=== PATIENT | female | born 1990 | race African-American/Black ===

== ENCOUNTER 2017-01-03 20:43 | Observation (INO) ==
[2017-01-03] MEDS ORDERED: SODIUM CHLORIDE 0.9% 500 ML IV STA (21:56)
--- NOTE | 2017-01-03 22:22 | Emergency Department Note ---
Garrett Be Gwan, am scribing for, and in the presence of, Roger Dunham MD 22 :05. Charla Be Charles R, MD, personally performed the services described in this documentation, ascribed by Mason Tucker in my presence, and it is both accurate and complete . Arrival - Arrival Chief Complaint: Urogenital - Female Stated Complaint: and cramping/4 months ED Nursing Triage Note: AMB TO ER WITH C/O LOWER ABDOMINAL CRAMPS AND SPOTTING THAT BEGAN 1 HOUR PRIOR TO ARRIVAL. PATIENT REPORTS SHE HAS NOT HAD ANY CARE. AO. LMP REPORTED WAS THE MIDDLE OF AUGUST SOMETIME- UNSURE OF ACTUAL DATE. Mode of Arrival: Ambulatory Limitations: No Limitations Source: Patient, Old Records Reviewed, RN Notes Reviewed Time Seen by Provider: 01/03/17 21:53 - History of Present Illness HPI Narrative: Patient is a 26 y/o female (, P:3, A:0) who presents to the ED with a c/o lower abd cramping, [place] and intermittent dark vaginal spotting with an onset yesterday. She continued to note that her sxs began to worsen prompting her visit to the ED tonight for further evaluation. Patient stated that she has her first OBGYN appointment tomorrow (01/04/2017) with Dr. Costello. Patient denies knowing exactly how far along in her she is, being under any medical care since confirmation of or having in PMHx of medical problems. No other problems/complaints reported in ED. Onset (ago): day(s) Consistency: constant, intermittent Severity: moderate Date of Last Menstrual Period: 08/2016 Allergies/Adverse Reactions: Allergies Allergy/AdvReac Type Severity Reaction Status Date / Time No Known Allergies Allergy Verified 01/03/17 21:05 Home Medications: Home Medications Medication Instructions Recorded Confirmed Type No Known Home Medications [No 01/03/17 01/03/17 History Known Home Medications] Review of System - Review of System 12 point system: reviewed and no additional remarkable complaints except as stated - Review of System Constitutional: Absent: chills, fever Eyes: Absent: discharge, pain Gastrointestinal: Present: as per HPI, abdominal pain (lower abd pain). Absent : nausea Genitourinary female: Present: as per HPI, abnormal menses (dark vaginal spotting ). Absent: dysuria Neurological: Present: as per HPI, headache Medical,Surgical,& Family Hx - Medical History Reproductive: No history of: Ectopic , Complication - Surgical History Reproductive Surgeries: Patient denies;: Section - Family History Family History: Reports;: Family Diabetes (father), Family Hypertension Denies;: Family Anesthesia Reaction, Family Cancer, Family Heart Disease, Family Psychiatric Problems, Family Stroke - Social History Smoking Status: Never smoker Frequency of Alcohol Use: None Type of Drug Use: None Exam Vital Signs: Vital Signs Temperature 97.3 F L 01/03/17 20:56 Pulse Rate 85 01/03/17 20:56 Respiratory Rate 18 01/03/17 20:56 Blood Pressure 132/81 01/03/17 20:56 O2 Sat by Pulse Oximetry 100 01/03/17 20:56 - General General appearance: alert, in no apparent distress - Head Head exam: Present: atraumatic, normocephalic - Eye Eye exam: Present: normal appearance, PERRL, EOMI - ENT ENT exam: Present: normal oropharynx, mucous membranes moist, TM's normal bilaterally, normal external ear exam - Neck Neck exam: Present: full ROM, trachea midline. Absent: tenderness - Chest Chest inspection: Present: symmetric chest wall rise. Absent: tenderness - Respiratory Respiratory exam: Present: normal lung sounds bilaterally. Absent: respiratory distress - Cardiovascular Cardiovascular exam: Present: regular rate, normal rhythm, normal heart sounds. Absent: murmur - Abdominal Exam Abdominal exam: Present: other (Patient has lower pelvic pain. ) - Extremities Exam Extremities exam: Present: full ROM. Absent: tenderness - Back Exam Back exam: Present: full ROM. Absent: tenderness - Neurological Exam Neurological exam: Present: alert, oriented X3, CN II-XII intact. Absent: motor sensory deficit - Psychiatric Psychiatric exam: Present: normal affect, normal mood - Skin Skin exam: Present: warm, dry, intact, normal color Course - Consultations Consultation #1: Dr. Costello will admit patient Time: 23:31 Results - Labs CBC & BMP: 01/03/17 22:34 Lab Results: I have reviewed the patients labs Labs: Laboratory Tests 01/03/17 01/03/17 22:34 22:34 WBC 13.6 H RBC 3.95 Hgb 12.1 Hct 35.9 Plt Count 264 MPV 8.9 L Neut % (Auto) 79.1 H Lymph % (Auto) 12.3 L Neut # (Auto) 10.7 H Charles # (Auto) 0.9 H Urine pH 6.0 Ur Specific [place] 1.009 Urine Blood Moderate Urine Urobilinogen < 2.0 H Urine Leukocytes Trace Urine RBC 1 Urine WBC 2 Ur Squamous Epith Cells Occasional Urine Bacteria Occasional Urine Mucus Occasional Laboratory Tests 01/03/17 22:34 INR 1.0 PT Patient/Control Mix 10.1 Disposition Clinical Impression: 14 week demise, Pelvic pain, Vaginal bleeding Case discussed with: patient, patient's family Disposition: Still a Patient Condition: Stable Time of Disposition: 23:31 Contact your physician if you experience:: fever over 101, Difficulty voiding, Redness or swelling, Nausea/Vomiting, Shortness of breath, Bleeding, pain uncontrolled by pain medications, Other Return to the Emergency Department if:: fever over 101, Difficulty voiding, Redness or swelling, Nausea/Vomiting, Shortness of breath, Bleeding, pain uncontrolled by pain medications, Other
[2017-01-03 23:01] LABS: Basophils # 0.1 10*3/uL (0.0-0.2); Basophils % 0.4 % (0.0-0.8); Eosinophils # 0.1 10*3/uL (0.0-0.87); Hematocrit 35.9 VOL% (35.7-47.0); Hemoglobin 12.1 GM/DL (12.0-16.0); Immature Granulocytes % 0.4 %; Immature Granulocytes Absolute 0.05 #; Lymphocytes # 1.7 10*3/uL (1.4-4.0); Lymphocytes % 12.3 % (21.3-54.2); Mean Corpuscular HGB Conc 33.7 GM/DL (32-36); Mean Corpuscular Hemoglobin 31 PG (27-34); Mean Corpuscular Volume 90.9 FL (87-102); Mean Platelet Volume 8.9 FL (9.6-12.0); Monocytes # 0.9 10*3/uL (0.11-0.8); Monocytes % 6.8 % (1.7-12.7); Neutrophils # 10.7 10*3/uL (1.4-7.4); Neutrophils % 79.1 % (38.7-73.9); Platelet Count 264 T/CUMM (130-400); Red Blood Count 3.95 MC/CUMM (3.8-5.5); Red Cell Distribution Width 12.3 % (9.3-17.3); White Blood Count 13.6 T/CUMM (4-12)
[2017-01-03 23:15] LABS: Apearance,Urine CLEAR (Clear); Bacteria,Urine Occasional /HPF (Few); Bilirubin,Urine Negative (Negative); Blood, Urine Moderate mg/dL (Negative); Glucose,Urine (UA) Negative (Negative); Ketones,Urine Negative (Negative); Mucus,Urine Occasional /LPF (Occasional); Nitrite,Urine Negative (Negative); Protein,Urine Negative; RBC,Urine 1 /HPF (0-4); Squamous Epithelial Cell,Urine Occasional /HPF (0-10); Urine Color Yellow (Yellow); Urine Specific Gravity 1.009 (1.001-1.035); Urine Urobilinogen < 2.0 EU/DL (0.2-1.0); WBC,Urine 2 /HPF (0-6)
[2017-01-03 23:16] LABS: PT Patient Result 10.1 SECS
[2017-01-03 23:27] LABS: Albumin 3.3 G/DL (3.4-5.0); Bilirubin,Total 0.4 MG/DL (0.2-1.0); Calcium 8.8 MG/DL (8.5-10.1); Osmolality,Calculated 270.8 MOS/KG (273-304); Potassium 3.6 MMOL/L (3.5-5.1); Total Protein 8.1 G/DL (6.4-8.3)
[2017-01-04] MEDS ORDERED: MORPHINE 2 MG/1 ML SYRINGE IV ONE (00:58)
[2017-01-04] MEDS ORDERED: ONDANSETRON 4 MG/2 ML VIAL ONE (00:58)
[2017-01-04] MEDS ORDERED: ONDANSETRON 4 MG/2 ML VIAL IV ONE (00:58)
[2017-01-04] MEDS ORDERED: MORPHINE 2 MG/1 ML SYRINGE ONE (00:58)
[2017-01-04] MEDS ORDERED: MAGNESIUM HYDROXIDE SUSP 30 ML UDCUP PO PRN (01:38)
[2017-01-04] MEDS ORDERED: ACETAMINOPHEN 325 MG TABLET PO PRN (01:38)
[2017-01-04] MEDS ORDERED: IBUPROFEN 800 MG TABLET PO PRN (01:38)
[2017-01-04] MEDS ORDERED: BISACODYL 10 MG SUPP RECTAL PRN (01:38)
[2017-01-04] MEDS ORDERED: ONDANSETRON 4 MG/2 ML VIAL IV PRN (01:38)
[2017-01-04] MEDS ORDERED: MORPHINE 2 MG/1 ML SYRINGE IV PRN (01:38)
[2017-01-04] MEDS ORDERED: ACETAMINOPHEN 325 MG TABLET ONE (01:47)
[2017-01-04] MEDS ORDERED: OXYTOCIN/LR 20 UNIT/1,000 ML BAG IV ONE ×2 (02:05→11:01)
[2017-01-04 02:52] LABS: Basophils # 0.1 10*3/uL (0.0-0.2); Basophils % 0.4 % (0.0-0.8); Eosinophils # 0.1 10*3/uL (0.0-0.87); Eosinophils % 0.4 % (0.00-10.9); Hematocrit 31.9 VOL% (35.7-47.0); Hemoglobin 11.1 GM/DL (12.0-16.0); Immature Granulocytes % 0.4 %; Immature Granulocytes Absolute 0.06 #; Lymphocytes # 1.3 10*3/uL (1.4-4.0); Lymphocytes % 9.5 % (21.3-54.2); Mean Corpuscular HGB Conc 34.8 GM/DL (32-36); Mean Corpuscular Hemoglobin 31 PG (27-34); Mean Corpuscular Volume 90.4 FL (87-102); Mean Platelet Volume 9.1 FL (9.6-12.0); Monocytes # 0.9 10*3/uL (0.11-0.8); Monocytes % 6.7 % (1.7-12.7); Neutrophils # 11.5 10*3/uL (1.4-7.4); Neutrophils % 82.6 % (38.7-73.9); Platelet Count 254 T/CUMM (130-400); Red Blood Count 3.53 MC/CUMM (3.8-5.5); Red Cell Distribution Width 12.4 % (9.3-17.3)
[2017-01-04] MEDS: SODIUM CHLORIDE 0.9% 1,000 ML IV SCH ×2 (05:17→12:56)
[2017-01-04] MEDS ORDERED: MEPERIDINE 25 MG/1 ML VIAL IV PRN (05:18)
--- NOTE | 2017-01-04 06:41 | Ultrasound Report ---
Exam: US OB <= 14 weeks fetus Date: 01/03/2017 9:57 PM Comparison: None Indication: Vaginal bleeding Findings: Transabdominal imaging was obtained. Uterus: 16.5 x 7.8 x 10.3 cm Gestational sac: Single gestational sac pole: calvarium appears to be collapsing. Head circumference 7.73 cm corresponding to a 13 week 2 day gestation BPD 1.67 cm corresponding to a 12 week 3 day gestation Abdominal circumference 6.98 cm corresponding to a 13 week 4 day gestation Femur length 1.31 cm corresponding to a 13 week 6 day gestation. No heart tones are demonstrated. Yolk sac: Not visualized Placenta cannot be identified definitely at this estimated gestational age. Amniotic fluid is appropriate for this estimated gestational age Right ovary: 3.5 x 2.1 x 3.5 cm Left ovary: 2.4 x 2.3 x 2.1 cm Free fluid: None Bladder: Not well seen Cervical length 3.6 cm No amniotic fluid present. Impression: 1. Intrauterine demise with 13 week 2 day gestation. Critical test report was called by [facility] radiology at the time of dictation To Dr. Dunham approximately 11:30 PM Ultrasound images were stored and captured PROCEDURE INTERPRETED AT [facility] [place] DEPARTMENT OF RADIOLOGY Final Report Signed by: Dr. Manpreet Vasquez
[2017-01-04] MEDS ORDERED: DOCUSATE SODIUM 100 MG CAPSULE PO SCH (09:00)
--- NOTE | 2017-01-04 09:23 | OB/GYN History & Physical ---
History of Present Illness Chief complaint: demise History of present illness: Ms. Sanchez is a 26 year old female 13+ weeks gestation with demise. Presents emergency room with vaginal bleeding and no cardiac activity. We will plan on performing a dilatation curettage. Risks benefits thoroughly discussed with the patient is in full agreement. Home Medications Medication Instructions Recorded Confirmed Type No Known Home Medications [No 01/03/17 01/03/17 History Known Home Medications] Allergies Allergy/AdvReac Type Severity Reaction Status Date / Time No Known Allergies Allergy Verified 01/03/17 21:05 Medical,Surgical,& Family Hx - Medical History Cardio: History of: Hypertension (Gestional HTN-- in 2015) Neurology: History of: Migraine (No medications for) No history of: Seizures Endocrine: No history of: Diabetes Mellitus (IDDM), Diabetes Mellitus (NIDDM), Thyroid Disorder Rheumatology: No history of;: Systemic Lupus Erythematosus Genitourinary: No history of: Kidney Stones, Recurring Urinary Tract Infections Hematology: No history of: Anemia, Blood Transfusion Reaction (Never had blood transfusion), Clotting Problems, Sickle Cell Disease, Blood Disorders Reproductive: No history of: Abnormal Pap Smear, Endometriosis, Ectopic , Ovarian Cysts, Complication, Sexually Transmitted Disorders Other: No history of: HIV, MRSA - Surgical History Reproductive Surgeries: Patient denies;: Breast Surgery, Section, Dilation and Curettage - Family History Family History: Reports;: Family Diabetes (father), Family Hypertension Denies;: Family Anesthesia Reaction, Family Cancer, Family Heart Disease, Family Psychiatric Problems, Family Stroke - Social History Smoking Status: Never smoker Frequency of Alcohol Use: None 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 Vitals: Vital Signs Temp Pulse Pulse Resp BP BP Pulse Ox 01/04/17 07:40 97.3 F L 71 18 108/72 01/04/17 06:00 18 01/04/17 04:00 97.6 F 66 16 107/67 01/04/17 01:30 97.4 F L 80 20 119/76 01/04/17 01:00 91 H 18 107/60 96 01/04/17 00:45 77 20 122/79 100 01/03/17 23:30 61 18 127/76 100 01/03/17 22:30 72 20 117/70 100 01/03/17 22:00 84 18 120/63 97 01/03/17 21:15 76 20 117/85 100 01/03/17 20:56 97.3 F L 85 18 132/81 100 Pulse Ox 01/04/17 07:40 98 01/04/17 06:00 01/04/17 04:00 99 01/04/17 01:30 100 01/04/17 01:00 01/04/17 00:45 01/03/17 23:30 01/03/17 22:30 01/03/17 22:00 01/03/17 21:15 01/03/17 20:56 General appearance: no acute distress - Antepartum / Post Antepartum Exam Cervix - Dilatation: Vaginal bleeding noted - Head Head exam: Present: normal inspection - Eye Eye exam: Present: EOMI Pupils: Present: TASH - ENT ENT exam: Present: normal exam - Respiratory Respiratory exam: Present: clear to auscultation bilaterally - Breast Breasts: as per HPI Menstruation: as per HPI - Cardiovascular Cardiovascular exam: Present: regular rate and rhythm - GI/Abdominal GI/Abdominal exam: Present: normal bowel sounds - Extremities Exam Extremities exam: Present: normal inspection - Back Exam Back exam: Present: normal inspection - Neurological Exam Neurological exam: Present: alert, oriented X3 - Psychiatric Psychiatric exam: Present: normal affect - Skin Skin exam: Present: normal color Assessment and Plan (1) demise Status: Acute Assessment and plan: Dilatation and curettage risks benefits are discussed she is in full agreement Current Visit: Yes Results - Labs CBC & BMP: 01/04/17 02:37 01/03/17 22:34
[2017-01-04] MEDS ORDERED: LACTATED RINGERS 1,000 ML IV SCH (10:00)
--- NOTE | 2017-01-04 11:00 | Operative Note ---
Date of procedure: 01/04/17 Procedure: Preoperative diagnosis: [] 13 weeks Postoperative diagnosis: Same, incomplete AB Anesthesia: General. endotracheal anesthesia Estimated blood loss: [] Less than 100 cc Surgeon: Dr. Costello Procedure: Dilatation and curettage The patient was taken to operating suite and placed in supine position and preparation of the perineum. A weighted speculum was placed in the posterior portion vagina and a single-tooth tenaculum was used to grasp the anterior lip of the cervix. The cervix was dilated to [9] [place] A suction curette was then placed inside. Gentle scraping was obtained in all 4 quadrants. [A moderate amount of tissue was obtained] at this particular time. Hemostasis was maintained at this particular time. Patient was extubated in the operating room and taken to recovery room in stable condition. Surgeon / Physician: Samuel Costello Results - Labs CBC & BMP: 01/04/17 02:37 01/03/17 22:34 Discharge Plan - Discharge Data Condition at Discharge: Stable Activity: increase activity as tolerated Hygiene: may shower Weight Bearing at Discharge: weight bear as tolerated Driving: no restrictions Contact your physician if you experience:: fever over 101, Bleeding - Discharge Medications New HYDROcodone/ACETAMIN 5-325 [[place] 5-325] 1 tablet PO Q6H #20 tablet Ibuprofen Tab [Motrin Tab] 800 mg PO Q8H PRN #30 tablet PRN Reason: Pain Moderate (4-7) - Follow Up or Referral - Forms/Instructions Instructions: Spontaneous Miscarriage (DC), Dilation and Curettage (DC)
--- NOTE | 2017-01-04 11:17 | Anesthesia Post-Op ---
Anesthesia Post OP - Post Ansesthetic Evaluation Patient seen in post op: Yes Resp: within normal limits CV: within normal limits Mental: within normal limits Temp: within normal limits Week-Qs-[id number]: within normal limits Nausea and Vomiting: within normal limits Pain: within normal limits
[2017-01-04 13:56] VITALS: BP 111/71
--- NOTE | 2017-01-05 18:16 | Pathology Report from [facility] ---
[employer] ACCESSION # : [id number] PATIENT NAME : Bill Schwartz ORDERING DR : Roger Dunham MD CLINICAL HX: 26 year old BF [id number] spontaneous miscarriage POST-OP DX: Same SPECIMEN INFO: #1 demise #2 Placenta (approx. 13-14 wks) GROSS DESCRIPTION: Received in two parts labeled:#1 BILL GRAY is a 27 gm macerated male fetus with a crown to rump measurement of 7.5 cm and a crown to heel measurement of 11.0 cm. No anomalies are grossly appreciated. Submitted for gross exam only.#2 BILL GRAY is a 104 gm placenta measuring 9.0 x 7.5 x 2.0 cm. The membranes are [place] and somewhat translucent. The umbilical cord measures 5.5 cm and is eccentrically inserted. The maternal surface is intact with scattered possible infarctions noted. Sections submitted 2A- membranes and cord, 2B- and maternal surfaces. DIAGNOSIS FOR BILL SCHWARTZ: #1 demise, gross only.#2 PLACENTA, DELIVERY: Immature placenta, 104 gms trimmed weight. Umbilical cord, 5.5 cm in length, with acute funisitis. Necrotic membranes. Perivillous fibrin deposition. COLLECTED DATE: 01/04/2017 [facility] REPORT DATE: 01/05/2017 ELECTRONICALLY SIGNED BY: Nora Villarreal M.D. 01/05/2017 - 14:34:42 MTDD
--- NOTE | 2017-01-05 18:19 | Pathology Report from [facility] ---
[facility] ACCESSION # : [id number] PATIENT NAME : Yazmin Schwartz ORDERING DR : JESSICA MARTINEZ MD CLINICAL HX: Missed AB POST-OP DX: Same SPECIMEN INFO: Uterine contents GROSS DESCRIPTION: The specimen is received in formalin labeled with the patients name and consists of an aggregate of hemorrhagic soft tissue and clotted blood measuring 5.5 x 2.7 cm. Possible chorionic villi is present. No parts are seen. [employer] tissue submitted in cassettes A and B. DIAGNOSIS FOR YAZMIN SCHWARTZ: UTERINE CONTENTS, D&C: Fragments of gestational endometrium, hemorrhage and scattered syncytiotrophoblasts, consistent with products of conception. No parts identified. COLLECTED DATE: 01/04/2017 [facility] REPORT DATE: 01/05/2017 ELECTRONICALLY SIGNED BY: Nora Villarreal M.D. 01/05/2017 - 12:19:34 MTDD
== END 2017-01-04 15:32 | disposition home or self-care (01) ==
LOC: N.ED 20:43 → INTOOBSV 23:41 → N.EDINP 23:41 → N.OB 01-04 00:20
PROVIDERS: ADMIT Obstetrics & Gynecology; ATTEND Obstetrics & Gynecology

== ENCOUNTER 2017-11-04 10:40 | Inpatient (IN) ==
[2017-11-04] MEDS ORDERED: CITRIC ACID/SODIUM CITRATE 30 ML UDCUP PO ONE (11:21)
[2017-11-04] MEDS ORDERED: FAMOTIDINE 20 MG/2 ML VIAL IV ONE (11:21)
[2017-11-04] MEDS ORDERED: ceFAZolin 2,000 MG in PREMIX 1 EACH IV ONE (11:21)
[2017-11-04] MEDS ORDERED: MAGNESIUM SULF RIDER 4 GM in PREMIX 1 EACH IV ONE (11:22)
[2017-11-04] MEDS ORDERED: BETAMETH SODIUM PHOS/ACETATE 30 MG/5 ML VIAL IM ONE (11:23)
[2017-11-04] MEDS ORDERED: LACTATED RINGERS 1,000 ML IV SCH ×2 (11:30→15:00)
[2017-11-04] MEDS ORDERED: MAGNESIUM SULF RIDER 100 ML IV ONE (11:39)
[2017-11-04] MEDS ORDERED: MAGNESIUM SULF DRIP 40 GM/1,000 ML ML IV SCH (12:00)
[2017-11-04 12:01] LABS: Basophils % 0.3 % (0.0-0.8); Eosinophils % 0.3 % (0.00-10.9); Hematocrit 31.6 VOL% (35.7-47.0); Hemoglobin 10.5 GM/DL (12.0-16.0); Immature Granulocytes % 0.9 %; Lymphocytes # 1.3 10*3/uL (1.4-4.0); Lymphocytes % 12.2 % (21.3-54.2); Mean Corpuscular HGB Conc 33.2 GM/DL (32-36); Mean Corpuscular Hemoglobin 30 PG (27-34); Mean Platelet Volume 10.9 FL (9.6-12.0); Monocytes # 0.8 10*3/uL (0.11-0.8); Monocytes % 7.1 % (1.7-12.7); Neutrophils # 8.4 10*3/uL (1.4-7.4); Neutrophils % 79.2 % (38.7-73.9); Platelet Count 259 T/CUMM (130-400); Red Blood Count 3.55 MC/CUMM (3.8-5.5); Red Cell Distribution Width 12.9 % (9.3-17.3); White Blood Count 10.7 T/CUMM (4-12)
[2017-11-04 12:13] LABS: INR 0.9; PT Patient Result 9.4 SECS; Partial Thromboplastin Time 27.5 SECS (0-40)
[2017-11-04 12:19] LABS: Alanine Aminotransferase 73 U/L (13-56); Albumin 2.2 G/DL (3.4-5.0); Alkaline Phosphatase 135 U/L (45-117); Aspartate Amino Transferase 57 U/L (0-37); Bilirubin,Total < 0.39 MG/DL (0.2-1.0); Blood Urea Nitrogen 9 MG/DL (7-18); Calcium 7.8 MG/DL (8.5-10.1); Glucose 81 MG/DL (74-106); Osmolality,Calculated 276.4 MOS/KG (273-304); Potassium 4.3 MMOL/L (3.5-5.1); Sodium 140 MMOL/L (136-145); Total Protein 6.7 G/DL (6.4-8.3)
[2017-11-04] MEDS: hydrALAZINE 20 MG/1 ML VIAL IV PRN ×2 (12:19→18:53)
[2017-11-04] MEDS ORDERED: OXYTOCIN 10 UNIT/ML VIAL ONE (12:45)
[2017-11-04] MEDS ORDERED: BUPIVACAINE SPINAL 0.75% 2 ML AMP SPINAL ONE (13:13)
[2017-11-04] MEDS ORDERED: MIDAZOLAM 2 MG/2 ML VIAL ONE (14:27)
[2017-11-04] MEDS ORDERED: ONDANSETRON 4 MG/2 ML VIAL ONE (14:27)
[2017-11-04] MEDS ORDERED: FUROSEMIDE 20 MG/2 ML VIAL ONE (14:27)
[2017-11-04] MEDS ORDERED: MORPHINE 10 MG/10 ML VIAL ONE (14:27)
[2017-11-04] MEDS ORDERED: SIMETHICONE CHEW 80 MG TABLET PO PRN (14:41)
[2017-11-04] MEDS ORDERED: ONDANSETRON 4 MG/2 ML VIAL IV PRN (14:41)
[2017-11-04] MEDS ORDERED: RHO(D) IMMUNE GLOBULIN 300 MCG SYRINGE IM ONE (14:41)
[2017-11-04] MEDS ORDERED: ACETAMINOPHEN 325 MG TABLET PO PRN (14:41)
[2017-11-04] MEDS ORDERED: OXYTOCIN/LR 20 UNIT/1,000 ML BAG IV ONE (14:41)
[2017-11-04] MEDS ORDERED: hydrOXYzine HCL 25 MG/1 ML VIAL IM PRN (14:48)
[2017-11-04] MEDS ORDERED: diphenhydrAMINE 50 MG/1 ML VIAL IV PRN (14:48)
[2017-11-04] MEDS ORDERED: HYDROmorphone 2 MG/1 ML VIAL IV PRN (14:48)
[2017-11-04 14:51] LABS: Apearance,Urine Slightly Hazy (Clear); Bacteria,Urine Occasional /HPF (Few); Bilirubin,Urine Negative (Negative); Blood, Urine Negative (Negative); Glucose,Urine (UA) Negative (Negative); Ketones,Urine Negative (Negative); Nitrite,Urine Negative (Negative); Protein,Urine >=500 MG/DL; Urine Color Yellow (Yellow); Urine Specific Gravity 1.008 (1.001-1.035); Urine Urobilinogen < 2.0 EU/DL (0.2-1.0); WBC,Urine 2 /HPF (0-6)
[2017-11-04] MEDS ORDERED: SODIUM CHLORIDE 0.9% 1,000 ML IV SCH (15:00)
[2017-11-04] MEDS ORDERED: SODIUM CHLORIDE 0.9% 100 ML IV ONE (21:05)
[2017-11-04] MEDS: ceFAZolin 1,000 MG in SYRINGE 1 EACH IV SCH (21:12)
[2017-11-05] MEDS ORDERED: SODIUM CHLORIDE 0.9% 100 ML IV ONE (04:32)
[2017-11-05] MEDS: ceFAZolin 1,000 MG in SYRINGE 1 EACH IV SCH (04:40)
[2017-11-05 05:54] LABS: Basophils % 0.1 % (0.0-0.8); Hematocrit 28.5 VOL% (35.7-47.0); Hemoglobin 9.7 GM/DL (12.0-16.0); Immature Granulocytes % 1.1 %; Immature Granulocytes Absolute 0.22 #; Lymphocytes # 0.8 10*3/uL (1.4-4.0); Lymphocytes % 3.9 % (21.3-54.2); Mean Corpuscular Hemoglobin 30 PG (27-34); Mean Corpuscular Volume 88.2 FL (87-102); Mean Platelet Volume 10.6 FL (9.6-12.0); Monocytes # 0.6 10*3/uL (0.11-0.8); Monocytes % 3.1 % (1.7-12.7); Neutrophils # 18.9 10*3/uL (1.4-7.4); Neutrophils % 91.8 % (38.7-73.9); Platelet Count 273 T/CUMM (130-400); Red Blood Count 3.23 MC/CUMM (3.8-5.5); Red Cell Distribution Width 13.2 % (9.3-17.3); White Blood Count 20.6 T/CUMM (4-12)
[2017-11-05 06:18] LABS: Band Neutrophils 1 % (0-10); Hypochromasia Slight; Lymphocytes 4 % (20-55); Microcytosis 1+; Platelet Estimate Normal; Polychromasia Slight; Segmented Neutrophils 90 % (50-85); Total Cells Counted 100
[2017-11-05] MEDS ORDERED: HydrOXYzine PAMOATE 25 MG CAPSULE PO ONE (06:30)
[2017-11-05] MEDS: MULTIVITAMIN (PRENATAL) TABLET PO SCH (09:32)
[2017-11-05] MEDS: IBUPROFEN 800 MG TABLET PO PRN ×2 (09:32→21:10)
[2017-11-05] MEDS: DOCUSATE SODIUM 100 MG CAPSULE PO SCH ×3 (09:33→21:10)
[2017-11-05] MEDS ORDERED: CITRIC ACID/SODIUM CITRATE 30 ML UDCUP ONE (10:26)
[2017-11-05] MEDS: MAGNESIUM HYDROXIDE SUSP 30 ML UDCUP PO PRN (21:10)
[2017-11-06] MEDS: IBUPROFEN 800 MG TABLET PO PRN (06:41)
[2017-11-06] MEDS: DOCUSATE SODIUM 100 MG CAPSULE PO SCH (08:30)
[2017-11-06] MEDS: MAGNESIUM HYDROXIDE SUSP 30 ML UDCUP PO PRN (08:30)
[2017-11-06] MEDS: MULTIVITAMIN (PRENATAL) TABLET PO SCH (08:30)
[2017-11-06 11:19] VITALS: BP 146/77
== END 2017-11-06 13:35 | disposition home or self-care (01) | DRG 540 ==
LOC: N.LDOUT 10:40 → N.LD 10:43 → N.OB 11-05 17:15
PROVIDERS: ADMIT Obstetrics & Gynecology; ATTEND Obstetrics & Gynecology
PROC: LDCSECT (ICD-10-PCS; 2017-11-04 11:30)